=== PATIENT | male | born 1950 | race Caucasian/White ===

== ENCOUNTER 2020-06-02 05:53 | Inpatient (IN) ==
[2020-06-02] MEDS ORDERED: ERTAPENEM 1,000 MG in SODIUM CHLORIDE 0.9% 100 ML IV ONE (06:00)
[2020-06-02] MEDS ORDERED: MIDAZOLAM 2 MG/2 ML VIAL ONE (06:02)
[2020-06-02] MEDS ORDERED: fentaNYL 100 MCG/2 ML VIAL ONE ×3 (06:03→09:53)
[2020-06-02] MEDS ORDERED: GABAPENTIN 400 MG CAPSULE PO ONE (06:23)
[2020-06-02] MEDS ORDERED: ACETAMINOPHEN 500 MG TABLET PO ONE (06:23)
[2020-06-02] MEDS ORDERED: FAMOTIDINE 20 MG TABLET PO ONE (06:23)
[2020-06-02] MEDS: LACTATED RINGERS 1,000 ML IV SCH ×3 (06:51→23:43)
[2020-06-02] MEDS ORDERED: ETOMIDATE 40 MG/20 ML VIAL IV ONE (07:14)
[2020-06-02] MEDS ORDERED: fentaNYL 250 MCG/5 ML VIAL ONE (07:29)
[2020-06-02] MEDS ORDERED: SUCCINYLCHOLINE 200 MG/10 ML VIAL ONE (07:45)
[2020-06-02] MEDS ORDERED: LIDOCAINE 2% 5 ML VIAL ONE (07:45)
[2020-06-02] MEDS ORDERED: ROCURONIUM 50 MG/5 ML VIAL IV ONE (07:45)
[2020-06-02] MEDS ORDERED: PHENYLEPHRINE 1 MG/10 ML SYRINGE IV ONE (07:45)
[2020-06-02] MEDS ORDERED: propofoL 200 MG/20 ML VIAL IV ONE (07:45)
[2020-06-02] MEDS ORDERED: SEVOFLURANE 1 UNIT/15 MINUTE INH ONE ×10 (07:45→12:40)
[2020-06-02] MEDS ORDERED: TISSUE ADHESIVE 1 EACH APPLICATOR TOP ONE (08:19)
[2020-06-02] MEDS ORDERED: INDOCYANINE GREEN 25 MG VIAL IV ONE (08:19)
[2020-06-02] MEDS ORDERED: KETOROLAC 30 MG/1 ML VIAL ONE ×2 (08:38)
[2020-06-02] MEDS ORDERED: LACTATED RINGERS 3,000 ML IV ONE (10:33)
[2020-06-02] MEDS ORDERED: ACETAMINOPHEN 1,000 MG/100 ML VIAL IV ONE (10:45)
[2020-06-02] MEDS ORDERED: GLYCOPYRROLATE 0.4 MG/2 ML VIAL ONE ×5 (12:28→12:39)
[2020-06-02] MEDS ORDERED: NEOSTIGMINE 10 MG/10 ML VIAL ONE (12:28)
[2020-06-02] MEDS ORDERED: HYDROmorphone 2 MG/1 ML VIAL IV PRN (12:31)
[2020-06-02 13:50] LABS: Basophils % 0.3 % (0.0-0.8); Eosinophils # 0.1 10*3/uL (0.0-0.87); Eosinophils % 0.5 % (0.00-10.9); Hematocrit 37.4 VOL% (42.0-52.0); Hemoglobin 11.9 GM/DL (14.0-18.0); Immature Granulocytes % 0.3 %; Immature Granulocytes Absolute 0.05 #; Lymphocytes # 1.6 10*3/uL (1.4-4.0); Lymphocytes % 10.6 % (21.2-54.2); Mean Corpuscular HGB Conc 31.8 GM/DL (32-36); Monocytes % 10.2 % (1.7-12.7); Neutrophils % 78.1 % (38.7-73.9); Platelet Count 220 T/CUMM (130-400); Red Blood Count 3.98 MC/CUMM (3.8-5.5); Red Cell Distribution Width 14.2 % (9.3-17.3); White Blood Count 15.4 T/CUMM (4-12)
[2020-06-02 14:09] LABS: Calcium 8.6 MG/DL (8.5-10.1); Osmolality,Calculated 271.1 MOS/KG (273-304); Potassium 4.5 MMOL/L (3.5-5.1)
[2020-06-02] MEDS: ACETAMINOPHEN INJ 1,000 MG in PREMIX 1 EACH IV SCH ×2 (17:09→21:08)
[2020-06-02] MEDS ORDERED: INFLUENZA VIRUS VACCINE 0.5 ML SYRINGE IM ONE (17:48)
[2020-06-02] MEDS ORDERED: PNEUMOCOCCAL VACCINE (23 VALENT) 0.5 ML VIAL IM ONE (17:49)
[2020-06-02] MEDS: ALVIMOPAN 12 MG CAPSULE PO SCH (20:40)
[2020-06-02] MEDS: ACETAMINOPHEN 325 MG TABLET PO PRN (20:40)
[2020-06-03] MEDS: ACETAMINOPHEN 325 MG TABLET PO PRN (02:44)
[2020-06-03 05:34] LABS: Basophils % 0.4 % (0.0-0.8); Eosinophils # 0.1 10*3/uL (0.0-0.87); Eosinophils % 0.7 % (0.00-10.9); Hematocrit 35.4 VOL% (42.0-52.0); Hemoglobin 11.2 GM/DL (14.0-18.0); Immature Granulocytes % 0.4 %; Immature Granulocytes Absolute 0.04 #; Lymphocytes # 1.4 10*3/uL (1.4-4.0); Mean Corpuscular HGB Conc 31.6 GM/DL (32-36); Mean Corpuscular Volume 94.7 FL (87-102); Mean Platelet Volume 10.4 FL (9.6-12.0); Monocytes % 16.1 % (1.7-12.7); Neutrophils % 67.4 % (38.7-73.9); Platelet Count 178 T/CUMM (130-400); Red Blood Count 3.74 MC/CUMM (3.8-5.5); Red Cell Distribution Width 14.6 % (9.3-17.3); White Blood Count 9.6 T/CUMM (4-12)
[2020-06-03] MEDS: ENOXAPARIN 40 MG/0.4 ML SYRINGE SUBCUT SCH (05:37)
[2020-06-03 06:07] LABS: Calcium 8.4 MG/DL (8.5-10.1); Osmolality,Calculated 272.8 MOS/KG (273-304); Potassium 4.1 MMOL/L (3.5-5.1)
[2020-06-03 06:08] LABS: Lymphocytes 22 % (20-55); Platelet Estimate Normal; Segmented Neutrophils 69 % (50-85); Total Cells Counted 100
[2020-06-03] MEDS: LACTATED RINGERS 1,000 ML IV SCH ×2 (07:57→11:21)
[2020-06-03] MEDS: ALVIMOPAN 12 MG CAPSULE PO SCH ×2 (08:26→20:41)
[2020-06-03] MEDS ORDERED: ALUMINUM/MAGNES/SIMETH MAX STR 30 ML UDCUP PO PRN (19:48)
[2020-06-04] MEDS: ENOXAPARIN 40 MG/0.4 ML SYRINGE SUBCUT SCH (05:37)
[2020-06-04] MEDS ORDERED: MAGNESIUM CHLORIDE 64 MG TABLET PO PRN (09:37)
[2020-06-04] MEDS ORDERED: POTASSIUM CHLORIDE 10 MEQ TABLET PO PRN (09:37)
[2020-06-04] MEDS ORDERED: FUROSEMIDE 20 MG TABLET PO PRN (09:45)
[2020-06-04] MEDS: ALVIMOPAN 12 MG CAPSULE PO SCH ×2 (10:43→20:14)
[2020-06-04] MEDS: carvediloL 6.25 MG TABLET PO SCH (20:13)
[2020-06-05] MEDS: LACTATED RINGERS 1,000 ML IV SCH (03:07)
[2020-06-05] MEDS: ENOXAPARIN 40 MG/0.4 ML SYRINGE SUBCUT SCH (06:30)
[2020-06-05 07:44] VITALS: BP 132/73
[2020-06-05] MEDS ORDERED: ZINC GLUCONATE 50 MG TABLET PO SCH (09:00)
[2020-06-05] MEDS ORDERED: ASPIRIN EC 81 MG TABLET PO SCH (09:00)
[2020-06-05] MEDS ORDERED: ASCORBIC ACID 500 MG TABLET PO SCH (09:00)
[2020-06-05] MEDS ORDERED: ROSUVASTATIN 20 MG TABLET PO SCH (09:00)
[2020-06-05] MEDS ORDERED: lisinopriL 20 MG TABLET PO SCH (09:00)
[2020-06-05] MEDS ORDERED: CHOLECALCIFEROL 5,000 UNIT TABLET PO SCH (09:00)
[2020-06-05] MEDS: ALVIMOPAN 12 MG CAPSULE PO SCH (09:01)
[2020-06-05] MEDS: carvediloL 6.25 MG TABLET PO SCH (09:01)
== END 2020-06-05 11:24 | disposition home or self-care (01) | DRG 330 ==
LOC: N.OR 05:53 → N.SDSINP 05:54 → N.3E 15:37
PROVIDERS: ADMIT Student in an Organized Health Care Education/Training Program; ATTEND Student in an Organized Health Care Education/Training Program